=== PATIENT | male | born 1970 | race Caucasian/White ===

== ENCOUNTER 2017-05-20 00:02 | Emergency (ER) | payer BC ==
--- NOTE | 2017-05-20 19:59 | ER ---
ADMIT: 05/20/2017 RM/LOC: ER [facility] MR#: [id number] [place], [place] [id number] [facility] [address] [address] Emergency Room Report SEX: M AGE: 47 : 1970 DATE: 05/20/2017 HISTORY OF PRESENT ILLNESS: The patient is a 47-year-old male, who was brought by Law Enforcement for medical clearance. Allegedly, the patient per [employer] Enforcement told something that he was not supposed to tell and was brought here for medical clearance to go to senior care. The patient and Law Enforcement denies any altercation, any trauma, or accident. The patient denies taking any medications other than he was prescribed for high blood pressure as prescribed. The patient also denies using any drugs and denies any pain or discomfort. The patient is alert, oriented to person, place, and time. PAST MEDICAL HISTORY: The patient has past medical history of diabetes and hypertension, PHYSICAL EXAMINATION: GENERAL: In the ER, the patient was in no pain or distress, sitting there and answering all the questions. Alert and oriented to person, place, and time. VITAL SIGNS: Blood pressure was 150/90, with heart rate of 101 and rechecked heart rate was in 90s. The patient was afebrile. HEAD and NECK: There were no signs of trauma. CHEST: Clear bilaterally. Nontender. HEART: Normal heart sounds. ABDOMEN: Soft. PELVIC: Stable. EXTREMITIES: No signs of trauma in extremities and extremities had normal range of motion. The patient had stable vitals and in no pain or distress and blood sugar was also checked. The patient was deemed stable to be discharged to senior care to be followed up by the senior care physician as needed. Clint Craig MD/ kisha JOB #: [id number] CC: Clint Craig MD, Attending Physician Kong Stuart MD, Family Physician
--- NOTE | 2017-05-23 13:39 | NUR ---
Called and spoke with pt. Pt states he is doing much better today. States he has a appt at the [facility] this afternoon and going to get registered. He plans to seek counseling and mental health services through the [facility] for [facility]. Pt states he has a very supportive family. Deny any needs or concerns at this time.
== END 2017-05-20 01:10 | disposition home or self-care (01) ==
LOC: ER 00:02
DX: Z02.89 Encounter for other administrative examinations (principal); E11.9 Type 2 diabetes mellitus without complications; I10 Essential (primary) hypertension; F17.210 Nicotine dependence, cigarettes, uncomplicated